=== PATIENT | female | born 1975 | race Caucasian/White ===

== ENCOUNTER → 2016-11-20 | Outpatient (CLI) | payer OTHER ==
[2016-11-20 10:43] LABS: ASPARTATE AMINO TRANSFERASE 18 U/L (15-37); BLOOD UREA NITROGEN 11 mg/dL (7-18)
== END | disposition home or self-care (01) ==
LOC: LAB 10:09
PROVIDERS: ATTEND Registered Nurse
DX: J30.9 Allergic rhinitis, unspecified (principal); R10.30 Lower abdominal pain, unspecified; R30.0 Dysuria; R53.83 Other fatigue
CPT/HCPCS: 36415; 80053; 80061; 82306; 84436; 84443; 84481; 85025

== ENCOUNTER → 2017-08-11 | Outpatient (CLI) | payer OTHER ==
[2017-08-11 12:02] LABS: MEAN CORPUSCULAR HEMOGLOBIN 29.8 pg (27.0-34.8); MEAN CORPUSCULAR HGB CONC 33.9 g/dL (32.4-35.8); MEAN CORPUSCULAR VOLUME 87.9 fL (80-100); MEAN PLATELET VOLUME 10.3 fL (7.4-10.4); PLATELET COUNT 191 x10^3/uL (130-400); RED BLOOD COUNT 4.61 x10^6/uL (3.82-5.3); RED CELL DISTRIBUTION WIDTH 13.4 % (9.6-15.2)
[2017-08-11 12:14] LABS: ALANINE AMINOTRANSFERASE 36 U/L (12-78); ALBUMIN 3.5 g/dL (3.4-5.0); ANION GAP 7 mmol/L (5-15); CALCIUM 8.4 mg/dL (8.5-10.1); CHLORIDE 109 mmol/L (98-107)
[2017-08-11 12:17] LABS: ALKALINE PHOSPHATASE 79 U/L (45-117); BILIRUBIN,TOTAL 0.6 mg/dL (0.2-1.0); CREATININE 0.79 mg/dL (0.55-1.02); TOTAL PROTEIN 7.3 g/dL (6.4-8.2)
== END | disposition home or self-care (01) ==
LOC: LAB 11:41
PROVIDERS: ATTEND Registered Nurse
DX: R10.9 Unspecified abdominal pain (principal)
CPT/HCPCS: 36415; 80053; 82150; 83690; 85027

== ENCOUNTER → 2017-08-11 | Outpatient (CLI) | payer OTHER | END | disposition home or self-care (01) | LOC: CFH 10:44 | PROVIDERS: ATTEND Registered Nurse | DX: R10.9 Unspecified abdominal pain (principal) | CPT/HCPCS: 76700 ==

== ENCOUNTER → 2017-09-10 | Outpatient (CLI) | payer OTHER ==
[~2017-09-10] MED LIST: IBUP-1484 PO; SINCALIDE (KINEVAC) 5 MCG ONE
== END | disposition home or self-care (01) ==
LOC: PETCFH 07:43
PROVIDERS: ATTEND Surgery
DX: K82.8 Other specified diseases of gallbladder (principal)
CPT/HCPCS: 78227; A9537; J2805

== ENCOUNTER 2017-09-12 07:41 | Emergency (ER) | payer OTHER ==
[~2017-09-12] VITALS: Ht 170.2 cm; Wt 82.1 kg
[2017-09-12 07:42] VITALS: BP 121/76
[2017-09-12] MEDS ORDERED: IBUP-1484 PO (07:59)
[2017-09-12] MEDS ORDERED: PHENAZOPYRIDINE 200 MG TABLET ONE (08:04)
[2017-09-12] MEDS ORDERED: PHENAZOPYRIDINE 200 MG TABLET PO ONE (08:30)
[2017-09-12 08:41] LABS: MICROSCOPIC NOT IND
[2017-09-12] MEDS ORDERED: KETOROLAC 30 MG/1 ML ONE (09:08)
[2017-09-12 09:09] LABS: CULTURE INDICATED? NO
[2017-09-12] MEDS ORDERED: KETOROLAC 30 MG/1 ML IM ONE (09:30)
== END 2017-09-12 09:27 | disposition home or self-care (01) ==
LOC: ED 08:17
DX: R30.0 Dysuria (principal); M62.830 Muscle spasm of back
CPT/HCPCS: 81003; 96372; 99283; J1885

== ENCOUNTER 2017-10-15 10:03 | Day surgery (SDC) | payer OTHER ==
[~2017-10-15] VITALS: Ht 167.6 cm; Wt 80.1 kg
[~2017-10-15 10:03] MED LIST changes: +BUPIVACAINE/PF 0.5% ONE; -SINCALIDE (KINEVAC) 5 MCG ONE
[2017-10-15] MEDS ORDERED: LACTATED RINGERS 1,000 ML IV SCH (10:18)
[2017-10-15 10:19] VITALS: BP 143/78
[2017-10-15] MEDS ORDERED: MIDAZOLAM 1 MG/ML, 2ML ONE (10:22)
[2017-10-15] MEDS ORDERED: FENTANYL PF 250 MCG/5ML ONE (10:22)
[2017-10-15] MEDS ORDERED: LIDOCAINE GEL 2%, 5ML ONE (10:24)
[2017-10-15] MEDS ORDERED: FAMOTIDINE 40 MG TABLET ONE (10:25)
[2017-10-15] MEDS ORDERED: ACETAMINOPHEN 500 MG TABLET PO ONE (10:30)
[2017-10-15] MEDS ORDERED: SCOPOLAMINE PATCH, 1.5MG PATCH.TD72 TD ONE (10:30)
[2017-10-15] MEDS ORDERED: ONDANSETRON ODT 8 MG PO PRN ×2 (10:30→11:00)
[2017-10-15] MEDS ORDERED: OxyconTIN ER 10 MG TAB.ER PO SCH (10:30)
[2017-10-15 10:35] LABS: HCG UR SG 1.023 (1.003-1.030)
[2017-10-15] MEDS ORDERED: CEFAZOLIN 1,000 MG ONE (10:42)
[2017-10-15] MEDS ORDERED: DEXAMETHASONE 4 MG/ML, 1ML ONE (10:42)
[2017-10-15] MEDS ORDERED: PROPOFOL 10 MG/ML, 20ML ONE (10:42)
[2017-10-15] MEDS ORDERED: ROCURONIUM 10 MG/ML,10ML ONE (10:42)
[2017-10-15] MEDS ORDERED: SUCCINYLCHOLINE 20 MG/ML, 10ML ONE (10:42)
[2017-10-15] MEDS ORDERED: OXYcodone 5 MG/5 ML ORAL.SOL UDC PO PRN (11:00)
[2017-10-15] MEDS ORDERED: LABETALOL 5MG/ML, 20ML IV PRN (11:00)
[2017-10-15] MEDS ORDERED: MEPERIDINE/PF 25MG/0.5ML IVPush PRN (11:00)
[2017-10-15] MEDS ORDERED: MORPHINE SULFATE 4 MG/ML, 1ML IVPush PRN (11:00)
[2017-10-15] MEDS ORDERED: PROMETHAZINE 25 MG/ML, 1ML IV PRN (11:00)
[2017-10-15] MEDS ORDERED: PROMETHAZINE 12.5 MG SUPP PR PRN (11:00)
[2017-10-15] MEDS ORDERED: hydrALAzine 20 MG/ML, 1ML IV PRN (11:00)
[2017-10-15] MEDS ORDERED: ALBUTEROL SULFATE 2.5 MG/3 ML NPPB PRN (11:00)
[2017-10-15] MEDS ORDERED: MIDAZOLAM 1 MG/ML, 2ML IV PRN (11:00)
[2017-10-15] MEDS ORDERED: BUPIVACAINE/PF-EPI 0.5% 1:200K IM ONE (11:01)
[2017-10-15] MEDS ORDERED: MEPERIDINE/PF 25MG/0.5ML ONE (11:47)
[2017-10-15] MEDS ORDERED: FENTANYL PF 100 MCG/2ML ONE ×2 (11:57→12:08)
[2017-10-15] MEDS: FENTANYL PF 100 MCG/2ML IV PRN ×4 (12:01→12:16)
[2017-10-15] MEDS ORDERED: FAMOTIDINE 40 MG TABLET PO SCH (21:00)
== END 2017-10-15 14:35 ==
LOC: OUT 10:03
PROVIDERS: ATTEND Surgery
DX: K42.0 Umbilical hernia with obstruction, without gangrene (principal); D50.9 Iron deficiency anemia, unspecified
CPT/HCPCS: 49587; 81025; J0330; J0690; J1100; J2175; J2250; J2704; J3010; J3490; J7120; Q0162

== ENCOUNTER → 2018-11-24 | Outpatient (CLI) | payer OTHER ==
[~2018-11-24] MED LIST changes: -BUPIVACAINE/PF 0.5% ONE
[2018-11-24 18:15] LABS: CRYPTOSPORIDIUM ANTIGEN Negative (Negative)
== END | disposition home or self-care (01) ==
LOC: LAB 16:32
PROVIDERS: ATTEND Nurse Practitioner Family
DX: R19.7 Diarrhea, unspecified (principal)
CPT/HCPCS: 87046; 87328; 87329; 87427; 89055

== ENCOUNTER → 2020-02-05 | Outpatient (CLI) | payer OTHER ==
[~2020-02-05] MED LIST changes: -IBUP-1484 PO; +IBUP-1902 PO
== END | disposition home or self-care (01) ==
LOC: RAD 16:48
PROVIDERS: ATTEND Physician Assistant
DX: R10.31 Right lower quadrant pain (principal); M54.9 Dorsalgia, unspecified; R10.819 Abdominal tenderness, unspecified site
CPT/HCPCS: 76700; 76857

== ENCOUNTER 2020-02-07 16:27 | Emergency (ER) | payer OTHER ==
--- NOTE | 2020-02-07 16:45 | NUR ---
NEENA PACHECO AT BS NOW.
[2020-02-07 17:06] LABS: BASOPHILS # (AUTO) 0.04 x10^3/uL (0-0.1); BASOPHILS % (AUTO) 1 % (0-1); EOSINOPHILS # (AUTO) 0.13 x10^3/uL (0-0.4); EOSINOPHILS % (AUTO) 2 % (1-7); LYMPHOCYTES % (AUTO) 23 % (22-44); MD NO; MEAN CORPUSCULAR HEMOGLOBIN 30.5 pg (27.0-34.8); MEAN CORPUSCULAR HGB CONC 33.8 g/dL (32.4-35.8); MEAN CORPUSCULAR VOLUME 90.3 fL (80-100); MEAN PLATELET VOLUME 10.7 fL (7.4-10.4); MONOCYTES % (AUTO) 5 % (2-9); NEUTROPHILS # (AUTO) 5.24 x10^3/uL (1.8-6.8); NEUTROPHILS % (AUTO) 70 % (42-75); PLATELET COUNT 174 x10^3/uL (130-400); RED BLOOD COUNT 4.79 x10^6/uL (3.82-5.3); RED CELL DISTRIBUTION WIDTH 13.1 % (9.6-15.2)
--- NOTE | 2020-02-07 17:10 | NUR ---
PT AMBULATED TO BR WITHOUT DIFFICULTY. INSTRUCTED ON CLEAN CATCH URINE SAMPLE.
[2020-02-07 17:17] LABS: ALANINE AMINOTRANSFERASE 17 U/L (12-78); ALBUMIN 3.8 g/dL (3.4-5.0); ANION GAP 4 mmol/L (5-15); CALCIUM 8.6 mg/dL (8.5-10.1); CHLORIDE 110 mmol/L (98-107); CREATININE 0.75 mg/dL (0.55-1.02)
--- NOTE | 2020-02-07 17:21 | NUR ---
ERP AT NOW.
[2020-02-07 17:22] LABS: ALKALINE PHOSPHATASE 70 U/L (45-117); BILIRUBIN,TOTAL 0.6 mg/dL (0.2-1.0); TOTAL PROTEIN 7.4 g/dL (6.4-8.2)
[2020-02-07 17:24] LABS: MICROSCOPIC AUTO
--- NOTE | 2020-02-07 17:50 | NUR ---
PT RETURNED FROM US. DENIES ANY NEEDS AT THIS TIME.
--- NOTE | 2020-02-07 18:36 | NUR ---
D/C INSTRUCTIONS, MEDS & F/U APPT RV'WD WITH PT, SHE VERBALIZES UNDERSTANDING. RX GIVEN X2. PT AMBULATED OUT OF ED WITHOUT DIFFICULTY.
[2020-02-07 18:37] VITALS: BP 113/80
== END 2020-02-07 18:37 | disposition home or self-care (01) ==
LOC: ED 18:00
DX: S39.012A Strain of muscle, fascia and tendon of lower back, initial encounter (principal); R10.31 Right lower quadrant pain; R10.2 Pelvic and perineal pain; X58.XXXA Exposure to other specified factors, initial encounter; Y93.89 Activity, other specified; Y92.89 Other specified places as the place of occurrence of the external cause; Y99.8 Other external cause status
CPT/HCPCS: 36415; 76830; 80053; 81001; 83690; 84703; 85025; 87086; 99284